=== PATIENT | female | born 1995 | race Two or more races ===

== ENCOUNTER → 2017-11-04 | Outpatient (CLI) | payer OTHER | LOC: M LRY 18:01 | DX: M79.671 Pain in right foot (principal) ==

== ENCOUNTER → 2018-03-01 | Outpatient (REF) | payer OTHER | LOC: M SFHCLERA 12:34 | DX: J02.9 Acute pharyngitis, unspecified (principal) ==

== ENCOUNTER → 2018-04-02 | Outpatient (REF) | payer OTHER ==
[2018-04-02 20:56] LABS: CHLAMYDIA DNA AMPLIFICATION NEGATIVE (NEGATIVE); GC DNA AMPLIFICATION NEGATIVE (NEGATIVE)
== END ==
LOC: M SFHCLERA 13:37
DX: Z86.19 Personal history of other infectious and parasitic diseases (principal)

== ENCOUNTER → 2018-05-23 | Outpatient (REF) | payer OTHER ==
[2018-05-23 22:43] LABS: CHLAMYDIA DNA AMPLIFICATION POSITIVE (NEGATIVE); GC DNA AMPLIFICATION NEGATIVE (NEGATIVE)
== END ==
LOC: M SFHCLERA 19:04
DX: R30.0 Dysuria (principal)

== ENCOUNTER 2019-01-08 12:21 | Day surgery (SDC) | payer OTHER ==
[~2019-01-08] VITALS: Ht 162.6 cm; Wt 88.5 kg
[~2019-01-08 12:21] MED LIST: BENA25CA4 PO; FISH7.5C PO; HYDR200T3 PO; LORA-243 PO; MULT1TAB18 PO; NASA1SPR NARES; OMEP40CA2 PO; VITA400T13 PO; [UNRECOGNIZED DRUG - CODE] PO
[2019-01-08] MEDS ORDERED: PROPOFOL 200 MG/20 ML VIAL As Ordered ONE (13:16)
[2019-01-08] MEDS ORDERED: LIDOCAINE 2% INJ 100 MG/5 ML SDV (FOR ANES.) As Ordered ONE (13:16)
[2019-01-08] MEDS ORDERED: NS 1,000 ML IV ONE (14:00)
[2019-01-08 14:20] VITALS: BP 138/94
--- NOTE | 2019-01-08 14:25 | ROOR ---
Patient Name: Lucy Edwards Procedure Date: 01/08/2019 1:43 PM Date of : 1995 Age: 23 Room: [facility] Gender: Female Note Status: Finalized Procedure: Upper GI endoscopy Indications: Heartburn, Suspected gastro-esophageal reflux disease Providers: Gigi Mccormick MD Referring MD: ERMELINDA WADSWORTH MD Requesting Provider: Medicines: Monitored Anesthesia Care Complications: No immediate complications. Procedure: Pre-Anesthesia Assessment: - Prior to the procedure, a History and Physical was performed, and patient medications and allergies were reviewed. The patient is competent. The risks and benefits of the procedure and the sedation options and risks were discussed with the patient. All questions were answered and informed consent was obtained. Patient identification and proposed procedure were verified by the physician, the nurse and the anesthesiologist in the procedure room. Mental Status Examination: alert and oriented. Airway Examination: normal oropharyngeal airway and neck mobility. Respiratory Examination: clear to auscultation. CV Examination: normal. Prophylactic Antibiotics: The patient does not require prophylactic antibiotics. Prior Anticoagulants: The patient has taken no previous anticoagulant or antiplatelet agents. ASA Grade Assessment: II - A patient with mild systemic disease. After reviewing the risks and benefits, the patient was deemed in satisfactory condition to undergo the procedure. The anesthesia plan was to use monitored anesthesia care (MAC). Immediately prior to administration of medications, the patient was re-assessed for adequacy to receive sedatives. The heart rate, respiratory rate, oxygen saturations, blood pressure, adequacy of pulmonary ventilation, and response to care were monitored throughout the procedure. The physical status of the patient was re-assessed after the procedure. The Endoscope was introduced through the mouth, and advanced to the second part of duodenum. The upper GI endoscopy was accomplished without difficulty. The patient tolerated the procedure well. Findings: The Z-line was regular and was found 38 cm from the incisors. The examined esophagus was normal. Patchy minimal inflammation characterized by erythema was found in the gastric body and in the gastric antrum. Biopsies were taken with a cold forceps for Helicobacter pylori testing. Verification of patient identification for the specimen was done by the physician and nurse using the patient's name, date and medical record number. Estimated blood loss was minimal. The duodenal bulb and second portion of the duodenum were normal. Impression: - Z-line regular, 38 cm from the incisors. - Normal esophagus. - Gastritis. Biopsied. - Normal duodenal bulb and second portion of the duodenum. Recommendation: - Patient has a contact number available for emergencies. The signs and symptoms of potential delayed complications were discussed with the patient. Return to normal activities tomorrow. Written discharge instructions were provided to the patient. - Resume previous diet. - Continue present medications. - Await pathology results. - Follow an antireflux regimen. - Based on the biopsy results you will receive a phone call from GI clinic in 2-3 weeks to review the pathology results AND/OR your results will be faxed to your Primary care physician. - Return to primary care physician. Gigi Mccormick MD Gigi Mccormick MD 01/08/2019 2:24:35 PM This report has been signed electronically. Number of Addenda: 0 Note Initiated On: 01/08/2019 1:43 PM Estimated Blood Loss: Estimated blood loss was minimal.
== END 2019-01-08 14:37 | disposition home or self-care (01) ==
LOC: M OPP 12:21
PROVIDERS: ATTEND Internal Medicine Gastroenterology
DX: R12 Heartburn (principal); K29.70 Gastritis, unspecified, without bleeding; K21.9 Gastro-esophageal reflux disease without esophagitis; Z79.899 Other long term (current) drug therapy; Z91.048 Other nonmedicinal substance allergy status

== ENCOUNTER 2019-02-15 15:40 | Emergency (ER) | payer BC, OTHER, SELFPAY ==
[~2019-02-15] VITALS: Ht 162.6 cm; Wt 86.8 kg
[2019-02-15] MEDS ORDERED: NEXP1IMP SC (15:48)
--- NOTE | 2019-02-15 16:10 | ECGEPIP ---
Stationary ECG Study [facility] - ED Test Date: 2019-02-15 Pat Name: CHANI CASTANEDA Department: Room: - Gender: F [employer]: sekou : 1995 Requested By: Amador Bill Order Number: [id number] Reading MD: Jordan Urrutia Measurements Intervals [place] Rate: 110 P: -1 [place]: 125 QRS: 62 QRSD: 88 T: 29 QT: 329 QTc: 446 Interpretive Statements SINUS TACHYCARDIA Comparison tracing not on file Electronically Signed On 02-15-2019 16:09:49 EDT by Jordan Urrutia
[2019-02-15 17:41] LABS: INFLUENZA A AMPLIFICATION NEGATIVE (NEGATIVE); INFLUENZA B AMPLIFICATION NEGATIVE (NEGATIVE)
[2019-02-15 18:35] LABS: URINE PREG TEST NEGATIVE (NEGATIVE)
[2019-02-15] MEDS ORDERED: AUGM875T28 PO (19:51)
[2019-02-15] MEDS ORDERED: KETO10TAB PO (19:51)
[2019-02-15 19:56] VITALS: BP 125/78
[2019-02-15] MEDS ORDERED: KETOROLAC TROMETHAMINE 10 MG TAB PO ONE (20:00)
[2019-02-15] MEDS ORDERED: AUGMENTIN 875 MG TAB PO ONE (20:00)
--- NOTE | 2019-02-15 20:42 | REP ---
CHEST, TWO VIEWS: There is no evidence of acute infiltrate. No pleural effusion is seen. The heart is normal in size. The mediastinal silhouette is unremarkable. The visualized osseous structures are intact. IMPRESSION: No acute pulmonary disease. Electronically Signed by Tomas Wise MD 02/15/2019 08:45 P
== END 2019-02-15 20:19 | disposition home or self-care (01) ==
LOC: M ED 15:40
DX: J20.9 Acute bronchitis, unspecified (principal); N39.0 Urinary tract infection, site not specified; R00.0 Tachycardia, unspecified; K21.9 Gastro-esophageal reflux disease without esophagitis; M06.9 Rheumatoid arthritis, unspecified; Z79.3 Long term (current) use of hormonal contraceptives; J30.81 Allergic rhinitis due to animal (cat) (dog) hair and dander; Z79.899 Other long term (current) drug therapy

== ENCOUNTER → 2019-03-11 | Outpatient (REF) | payer BC ==
[~2019-03-11] MED LIST changes: +AUGM875T28 PO; +KETO10TAB PO; +NEXP1IMP SC
[2019-03-12 11:49] LABS: CHLAMYDIA DNA AMPLIFICATION NEGATIVE (NEGATIVE); GC DNA AMPLIFICATION NEGATIVE (NEGATIVE)
== END ==
LOC: M LAB REF 09:10
PROVIDERS: ATTEND Physician Assistant
DX: R30.0 Dysuria (principal)

== ENCOUNTER → 2019-05-24 | Outpatient (REF) | payer BC ==
[2019-05-24 22:22] LABS: CHLAMYDIA DNA AMPLIFICATION NEGATIVE (NEGATIVE); GC DNA AMPLIFICATION NEGATIVE (NEGATIVE)
== END ==
LOC: M LAB REF 10:26
PROVIDERS: ATTEND Physician Assistant
DX: N30.00 Acute cystitis without hematuria (principal)

== ENCOUNTER → 2019-08-06 | Outpatient (REF) | payer BC ==
[~2019-08-06] MED LIST changes: -OMEP40CA2 PO; +OMEP40CA97 PO
[2019-08-06 22:00] LABS: CHLAMYDIA DNA AMPLIFICATION NEGATIVE (NEGATIVE); GC DNA AMPLIFICATION NEGATIVE (NEGATIVE)
== END ==
LOC: M LAB REF 09:17
PROVIDERS: ATTEND Physician Assistant
DX: N76.0 Acute vaginitis (principal)

== ENCOUNTER → 2019-10-09 | Outpatient (REF) | payer BC ==
[2019-10-09 18:26] LABS: HEMATOCRIT 35.5 % (36.0-47.0); HEMOGLOBIN 11.4 g/dl (12.0-15.5); MEAN CORPUSCULAR HEMOGLOBIN 29.3 pg (27.0-33.0); MEAN CORPUSCULAR HGB CONC 32.1 g/dl (32.0-36.5); MEAN CORPUSCULAR VOLUME 91.3 fl (80.0-96.0); PLATELET COUNT, AUTOMATED 341 10^3/uL (150-450); RED BLOOD COUNT 3.89 10^6/uL (4.00-5.40); WHITE BLOOD COUNT 6.9 10^3/uL (4.0-10.0)
[2019-10-09 19:32] LABS: HCG, SERUM QUANTITATIVE 80607 MIU/ML
[2019-10-10 09:50] LABS: RUBELLA IgG QUALITATIVE IMMUNE (IMMUNE)
[2019-10-10 10:37] LABS: HEPATITIS C VIRUS ABY INDEX 0.1 INDEX (<0.8); HIV 1&2 SCREEN CENTAUR NEGATIVE (NEGATIVE)
== END ==
LOC: M LAB REF 17:47
PROVIDERS: ATTEND Nurse Practitioner Women's Health
DX: Z32.01 Encounter for pregnancy test, result positive (principal); O36.80X0 Pregnancy with inconclusive fetal viability, not applicable or unspecified

== ENCOUNTER → 2023-07-13 | Outpatient (CLI) | payer OTHER ==
[~2023-07-13] MED LIST changes: +ETON68IM SC; +FISH10005 PO; -FISH7.5C PO; -HYDR200T3 PO; +HYDR200T46 PO; -NEXP1IMP SC; +OMEP40CA4 PO; -OMEP40CA97 PO
== END ==
LOC: M PLAIMG 10:54
PROVIDERS: ATTEND Physician Assistant
DX: J32.8 Other chronic sinusitis (principal); J34.2 Deviated nasal septum; R93.0 Abnormal findings on diagnostic imaging of skull and head, not elsewhere classified

== ENCOUNTER 2023-12-20 11:31 | Day surgery (SDC) | payer OTHER ==
[~2023-12-20] VITALS: Ht 162.6 cm; Wt 98.0 kg
[2023-12-20] MEDS ORDERED: LR 1,000 ML IV SCH ×3 (11:40→19:50)
[2023-12-20] MEDS ORDERED: SUGAMMADEX SODIUM 500 MG/5 ML VIAL (BRIDION) As Ordered ONE (13:08)
[2023-12-20] MEDS ORDERED: ROCURONIUM BROMIDE 50MG/5ML VIAL As Ordered ONE (13:08)
[2023-12-20] MEDS ORDERED: LIDOCAINE 2% 100MG/5ML SDV (FOR ANES.) As Ordered ONE (13:08)
[2023-12-20] MEDS ORDERED: propofoL 200 MG/20 ML VIAL As Ordered ONE (13:08)
[2023-12-20] MEDS ORDERED: ONDANSETRON 4MG 2ML VIAL As Ordered ONE (13:09)
[2023-12-20] MEDS ORDERED: fentaNYL 100 MCG/2 ML INJECTION As Ordered ONE (13:13)
[2023-12-20] MEDS ORDERED: MIDAZOLAM INJ 2MG/2ML VIAL As Ordered ONE (13:13)
[2023-12-20] MEDS ORDERED: ACETAMINOPHEN 1000MG 100ML IV BAG As Ordered ONE (14:47)
[2023-12-20] MEDS ORDERED: METOCLOPRAMIDE INJ 10MG/2ML VIAL As Ordered ONE (14:49)
[2023-12-20] MEDS: COCAINE 4% 4ML NASAL SOLUTION BTL As Ordered ONE (14:56)
[2023-12-20] MEDS ORDERED: LABETALOL 100MG/20ML VIAL As Ordered ONE (15:16)
[2023-12-20] MEDS ORDERED: oxyCODONE 5MG TAB PO PRN (16:05)
[2023-12-20] MEDS ORDERED: PROMETHAZINE 25MG/ML 1ML VIAL IV PRN (16:05)
[2023-12-20] MEDS ORDERED: fentaNYL 100 MCG/2 ML INJECTION IV PRN (16:05)
[2023-12-20] MEDS ORDERED: METOCLOPRAMIDE INJ 10MG/2ML VIAL IV PRN (16:05)
[2023-12-20] MEDS ORDERED: ONDANSETRON 4MG 2ML VIAL IV PRN (16:05)
[2023-12-20] MEDS: HYDROMORPHONE HCL 0.5 MG/ 0.5 ML SYRINGE IV PRN (16:35)
[2023-12-20 17:50] VITALS: BP 136/85; TEMP 98.1; O2SAT 98
[2023-12-20] MEDS ORDERED: ANEXSIA, NORCO 7.5MG/325MG TABLET(HYDROCODONE/APAP) PO PRN (19:50)
== END 2023-12-20 17:58 | disposition home or self-care (01) ==
LOC: M SDC 11:31
PROVIDERS: ATTEND Otolaryngology
DX: J34.2 Deviated nasal septum (principal); J34.3 Hypertrophy of nasal turbinates
CPT/HCPCS: 30140; 30520; 81025; C9143; J0131; J1100; J1170; J1920; J2250; J2405; J2765; J3010

== ENCOUNTER → 2024-04-29 | Outpatient (REF) | payer OTHER | LOC: M LAB REF 17:19 | PROVIDERS: ATTEND Physician Assistant Medical | DX: B34.9 Viral infection, unspecified (principal) ==

== ENCOUNTER → 2025-09-26 | Outpatient (CLI) | payer OTHER | LOC: M WHC 12:12 | PROVIDERS: ATTEND Registered Nurse | DX: E04.1 Nontoxic single thyroid nodule (principal) ==

== ENCOUNTER → 2025-10-09 | Outpatient (CLI) | payer OTHER ==
[~2025-10-09] MED LIST changes: -FISH10005 PO; +FISH1CAP38 PO
[2025-10-09 15:20] LABS: ALT/SGPT 11 U/L (7.0-40); AST/SGOT 15 U/L (<34); CALCIUM LEVEL 9.3 MG/DL (8.5-10.1); CARBON DIOXIDE LEVEL 27 MMOL/L (20-31); CHLORIDE LEVEL 104 MMOL/L (98-107); CHOLESTEROL LEVEL 189 MG/DL (<200); CHOLESTEROL RISK RATIO 4.00 (<5); CREATININE FOR GFR 0.61 MG/DL (0.55-1.30); GLOMERULAR FILTRATION RATE > 90.0 (>60); LDL CHOLESTEROL 118.8 MG/DL (<100); NON-HDL-C 141.8 MG/DL; POTASSIUM SERUM 4.2 MMOL/L (3.5-5.1); SODIUM LEVEL 141 MMOL/L (136-145); TRIGLYCERIDES LEVEL 115 MG/DL (<150)
[2025-10-09 15:22] LABS: FREE T4 1.35 NG/DL (0.89-1.76); PLATELET COUNT, AUTOMATED 366 10^3/uL (150-450)
[2025-10-09 15:36] LABS: ESTIMATED AVERAGE GLUCOSE 97.0 MG/DL (60-110)
== END ==
LOC: M PLALAB 08:38
PROVIDERS: ATTEND Registered Nurse
DX: O24.419 Gestational diabetes mellitus in pregnancy, unspecified control (principal); O99.280 Endocrine, nutritional and metabolic diseases complicating pregnancy, unspecified trimester; E04.1 Nontoxic single thyroid nodule; Z13.220 Encounter for screening for lipoid disorders; Z3A.00 Weeks of gestation of pregnancy not specified